=== PATIENT | female | born 2000 | race African-American/Black ===

== ENCOUNTER 2022-09-20 09:50 | Emergency (ER) | payer OTHER, SELFPAY ==
[2022-09-20 10:09] VITALS: BP 135/94; PULSE 88; RESP 20; TEMP 36.4; O2SAT 99
--- NOTE | 2022-09-20 10:16 | ED.LOWEXIN ---
HPI - Extremity Injury (Lower) General Chief Complaint: Extremity Injury, Lower Stated Complaint: right ankle sprain Time Seen by Provider: 09/20/22 09:54 Source: patient Mode of arrival: ambulatory Limitations: no limitations History of Present Illness HPI Narrative: Patient is a 22-year-old female who presents to the ED with report of right ankle pain. Patient reports she tripped and rolled her right ankle while walking yesterday afternoon. She is unsure which direction her ankle turned. She complains of pain and swelling to her right lateral ankle. She is able to ambulate, but has pain with full weightbearing. She has been using crutches for assistance. Denies any numbness or tingling. Denies foot pain, knee pain. Patient took Aleve yesterday. Related Data Allergies Allergy/AdvReac Type Severity Reaction Status Date / Time diphenhydramine Allergy Itching Unverified 09/20/22 10:14 [From [facility]] Review of Systems Review of Systems: CONSTITUTIONAL: Denies fever, chills, or sweats. MUSCULOSKELETAL: See HPI. NEUROLOGIC: Denies tingling, numbness, or weakness. All systems reviewed & are unremarkable except as noted in HPI and below Exam Narrative: GENERAL: Well appearing, morbidly obese with BMI 48.3, non-toxic, in no acute distress. HEAD: Normocephalic, atraumatic. NECK: Supple. No adenopathy, no masses. RESPIRATORY: Airway patent, respirations nonlabored. Clear to auscultation bilaterally, no rales, rhonchi, wheezing. CARDIOVASCULAR: Regular rate and rhythm without murmurs, rubs, or gallops. Pedal pulses 2+ and equal bilaterally. MUSCULOSKELETAL: Moves all extremities. No gross deformities. Mild limited ROM of right ankle due to pain. Tenderness to palpation and mild swelling noted over R lateral malleoli, particularly posteriorly. No TTP along 5th metatarsal. No tenderness more proximally throughout R lower leg/knee. Sensation intact. SKIN: Warm, dry, normal color. No rashes. NEURO: A&O X3. Speech clear. Cranial nerves II-XII grossly intact. No ataxic movements. PSYCHIATRIC: Appropriate mood and affect. Normal interaction. Course Vital Signs Vital signs: Vital Signs Temperature 97.6 F 09/20/22 10:09 Pulse Rate 88 09/20/22 10:09 Respiratory Rate 20 09/20/22 10:09 Blood Pressure 135/94 H 09/20/22 10:09 Pulse Oximetry 99 09/20/22 10:09 Oxygen Delivery Room Air 09/20/22 10:09 Temperature 97.6 F 09/20/22 10:09 Pulse Rate 88 09/20/22 10:09 Respiratory Rate 20 09/20/22 10:09 Blood Pressure 135/94 H 09/20/22 10:09 Pulse Oximetry 99 09/20/22 10:09 Oxygen Delivery Room Air 09/20/22 10:09 MDM - Extremity Injury (Lower) MDM Narrative Medical decision making narrative: Patient's injury is consistent with musculoskeletal etiology. No signs of neurologic or vascular compromise on physical examination. Compartments are soft without signs of compartment syndrome. XR R ankle w/o evidence for fx/dislocation. Pain is consistent with ankle sprain. Patient is felt to be stable for discharge home and further outpatient management and treatment. Provided with Yvan bandage in the ED. Will provide patient with orthopedic information for follow-up if needed. Discussed RICE treatment and reasons to return. Patient did not want anything for pain in the ED. Advised to continue Tylenol/ibuprofen. Medical Records Attestation: I reviewed the patient's medical records. Imaging Data Attestation: I personally reviewed and interpreted this imaging study as follows: Radiologist's impression: ITS Impressions Ankle X-Ray 09/20/22 10:06 Impression: Unremarkable right ankle. Discharge Plan Discharge Clinical Impression: Sprain of right ankle Qualifiers: Encounter type: initial encounter Involved ligament of ankle: unspecified ligament Qualified Code(s): S93.401A - Sprain of unspecified ligament of right ankle, initial encounter Patient Disposition: Home
[2022-09-20 10:29] VITALS: RESP 16
== END 2022-09-20 10:27 | disposition home or self-care (01) ==
LOC: ANHED 10:19
PROVIDERS: Emergency Provider Physician Assistant
DX: S93.401A Sprain of unspecified ligament of right ankle, initial encounter (principal); W18.40XA Slipping, tripping and stumbling without falling, unspecified, initial encounter; X50.9XXA Other and unspecified overexertion or strenuous movements or postures, initial encounter
CPT/HCPCS: 73610; 99283